=== PATIENT | female | born 1990 | race African-American/Black ===

== ENCOUNTER 2017-02-27 13:53 | Emergency (ER) | payer MEDICAID ==
[~2017-02-27] VITALS: Ht 165.1 cm; Wt 89.4 kg
--- NOTE | 2017-02-27 15:32 | Emergency Room Report ---
History of Present Illness General Chief Complaint: General Complaint Source: Patient Present Illness HPI 26-year-old female presents emergency department complaining of retained vaginal foreign body since last night. Patient states she is on her second day of her menstrual cycle and she has been unable to remove tampon which she placed last night. Patient denies fevers, chills, vaginal malodor, discharge vaginally other than bleeding. Patient denies swollen tender lymph nodes. Denies abdominal pain. Denies CP, Palpitations, LOC, AMS, dizziness, Changes in Vision, Sensation, paresthesias, or a sudden severe headache. Allergies: Coded Allergies: No Known Allergies (Unverified , 02/27/17) Patient History Past Medical History: see triage record Past Surgical History: none Pertinent Family History: none Reviewed Nursing Documentation: PMH: Agreed, PSxH: Agreed Nursing Documentation-PMH Past Medical History: No Stated History Review of Systems All Other Systems: negative except mentioned in HPI Physical Exam Vital Signs Date Time Temp Pulse Resp B/P (MAP) Pulse Ox O2 Delivery O2 Flow Rate FiO2 02/27/17 13:58 98.4 75 20 114/63 100 Room Air Sp02 EP Interpretation: reviewed, normal General Appearance: no apparent distress, alert, GCS 15, non-toxic Head: normocephalic, atraumatic Eyes: bilateral eye normal inspection, bilateral eye PERRL ENT: hearing grossly normal, normal voice Neck: full range of motion Respiratory: lungs clear, normal breath sounds, speaking full sentences Cardiovascular #1: regular rate, rhythm Gastrointestinal: normal bowel sounds, non tender, soft, no guarding, no rebound Rectal: deferred Genitourinary: normal inspection, no CVA tenderness, ext genitalia/vag normal, other - tampon was high up in the vaginal vault and turn sideways, requiring removal with forecepts, no CMT. Musculoskeletal: back normal, gait/station normal, normal range of motion, non- tender Neurologic: alert, oriented x3, responsive, motor strength/tone normal, normal gait, speech normal, grossly normal Skin: normal color, no rash, warm/dry, well hydrated Lymphatic: no adenopathy Medical Decision Making PA Attestation Dr. Garcia is my supervising Physician whom patient management has been discussed with. Diagnostic Impression: Primary Impression: Vaginal foreign body Qualified Codes: T19.2XXA - Foreign body in vulva and vagina, initial encounter ER Course 26-year-old female presents emergency department complaining of retained vaginal foreign body since last night. Patient states she is on her second day of her menstrual cycle and she has been unable to remove tampon which she placed last night. Patient denies fevers, chills, vaginal malodor, discharge vaginally other than bleeding. Patient denies swollen tender lymph nodes. Denies abdominal pain. Denies CP, Palpitations, LOC, AMS, dizziness, Changes in Vision, Sensation, paresthesias, or a sudden severe headache. -Denies nausea vomiting fevers chills, , history of PID or history of STDs. Ddx considered but are not limited to retained vaginal foreign body, vaginal wall laceration, toxic shock, sepsis Vital signs: are WNL, pt. is afebrile H&PE are most consistent with vaginal foreign body/ Tampon , no evidence of systemic infection at this time ORDERS: none required at this time, the diagnosis is clinical ED INTERVENTIONS: -Vaginal foreign body was visualized as [ Tampon ] , it was removed using forceps provided in OB kit with speculum. pt tolerated well. there were no complications. DISCHARGE: At this time pt. is stable for d/c to home. Will provide printed patient care instructions, and any necessary prescriptions. Care plan and follow up instructions have been discussed with the patient prior to discharge. Last Vital Signs Date Time Temp Pulse Resp B/P (MAP) Pulse Ox O2 Delivery O2 Flow Rate FiO2 02/27/17 13:58 98.4 75 20 114/63 100 Room Air Disposition: HOME, SELF-CARE Condition: Stable Referrals: NOT CHOSEN IPA/MD,REFERRING (PCP) Patient Instructions: Vaginal Foreign Body, [id number] Additional Instructions: Take medications as directed. Follow up with a Primary Care Provider in 3-5 days, even if your symptoms have resolved. --Please review list of primary care clinics, if you do not already have a primary care provider Return sooner to ED if new symptoms occur, or current symptoms become worse. - Please note that this Emergency Department Report was dictated using [employer] clerk technology software, occasionally this can lead to erroneous entry secondary to interpretation by the dictation equipment. Kasey Segovia Feb 27, 2017 15:32
[2017-02-27 15:56] VITALS: BP 114/63
== END 2017-02-27 15:58 | disposition home or self-care (01) ==
LOC: EMR 14:40
DX: T19.2XXA Foreign body in vulva and vagina, initial encounter (principal)
CPT/HCPCS: 99283